=== PATIENT | female | born 1965 | race Caucasian/White ===

== ENCOUNTER 2022-04-22 05:14 | Day surgery (SDC) | payer OTHER ==
[2022-04-18 12:58] VITALS: BMI 35.2
[2022-04-22] MEDS ORDERED: PROPOFOL 20 ML ONE (10:19)
[2022-04-22] MEDS ORDERED: MIDAZOLAM HCL 2 MG/2 ML SINGLE DOSE VIAL ONE (10:19)
[2022-04-22] MEDS ORDERED: KETOROLAC TROMETHAMINE 30 MG/1 ML VIAL ONE (10:19)
[2022-04-22 11:31] VITALS: RESP 18
[2022-04-22 13:11] VITALS: BP 125/69; PULSE 74; TEMP 98.2
== END 2022-04-22 13:10 | disposition home or self-care (01) ==
LOC: JASU-SURG 05:14
PROVIDERS: ATTEND Urology
PROC: 0TF4XZZ Fragmentation in Left Kidney Pelvis, External Approach (ICD-10-PCS; principal; 2022-04-22 10:50)
DX: N20.0 Calculus of kidney (principal)

== ENCOUNTER 2022-05-06 03:55 | Day surgery (SDC) | payer OTHER ==
[2022-05-01 15:26] VITALS: BMI 35.2
[2022-05-06 07:17] VITALS: RESP 18
[2022-05-06] MEDS ORDERED: MIDAZOLAM HCL 2 MG/2 ML SINGLE DOSE VIAL ONE (09:46)
[2022-05-06] MEDS ORDERED: ACETAMINOPHEN 325 MG TABLET (FP) PO PRN (09:49)
[2022-05-06] MEDS ORDERED: oxyCODONE HCL 5 MG TABLET PO PRN (09:49)
[2022-05-06] MEDS ORDERED: ONDANSETRON 4 MG/2 ML VIAL IVPUSH PRN (09:49)
[2022-05-06] MEDS ORDERED: LACTATED RINGERS SOLUTION 1,000 ML IV SCH (10:00)
[2022-05-06] MEDS ORDERED: KETOROLAC TROMETHAMINE 30 MG/1 ML VIAL ONE (10:17)
[2022-05-06 11:17] VITALS: BP 128/72; PULSE 73; TEMP 97.8
== END 2022-05-06 11:46 | disposition home or self-care (01) ==
LOC: JASU-SURG 03:55
PROVIDERS: ATTEND Urology
PROC: 0TF4XZZ Fragmentation in Left Kidney Pelvis, External Approach (ICD-10-PCS; principal; 2022-05-06 09:30)
DX: N20.0 Calculus of kidney (principal); E11.9 Type 2 diabetes mellitus without complications; I10 Essential (primary) hypertension
CPT/HCPCS: 82962